=== PATIENT | female | born 1960 | race Caucasian/White ===

== ENCOUNTER → 2025-08-24 | Outpatient (CLI) | payer OTHER ==
--- NOTE | 2025-08-24 15:11 | HMCIMG ---
EXAM: MR Cervical Spine Without IV contrast. CLINICAL HISTORY: RADICULOPATHY CERVICAL REGION TECHNIQUE: Magnetic resonance images of the cervical spine without intravenous contrast in multiple planes. Series acquired: 2 - LOCALIZER - TR: 700.0 - TE: 79.6 - ET: 1.0 - Thk: 5.0 300 - SC:SAG T2 FRFSE - TR: 3485.0 - TE: 119.2 - ET: 27.0 - Thk: 3.0 400 - SC:SAG T1 FSE - TR: 454.0 - TE: 16.2 - ET: 4.0 - Thk: 3.0 500 - SC:SAG STIR - TR: 4349.0 - TE: 39.7 - ET: 13.0 - Thk: 3.0 600 - SC:AX T2 FRFSE - TR: 5410.0 - TE: 121.2 - ET: 14.0 - Thk: 3.0 CONTRAST: None. COMPARISON: None provided. FINDINGS: VERTEBRAE: No compressions are seen. No masses are seen. There is no infiltrative bone marrow disease. ALIGNMENT: Bony alignment is anatomic. SPINAL CORD/BRAIN: No abnormality is seen in the cord. No abnormality is seen in the visualized portions of the brain. FINDINGS BY LEVEL: C2-C3: The disc space height is maintained. There is adequate disc hydration. There is no bulge or herniation. No neural foraminal stenosis is seen. No spinal canal stenosis is seen. Facets are normal. C3-C4: The disc is desiccated with a 3 mm disc osteophyte complex. Bilateral uncinate hypertrophy causes moderate bilateral neuroforaminal stenosis. C4-C5: Disc and osteophyte complex 3 mm with bilateral uncinate hypertrophy is associated with severe bilateral neural foraminal stenosis and mild cord compression C5-C6: Disc and osteophyte complex 3 mm combined with bilateral facet hypertrophy with severe neuroforaminal stenosis. Bilateral facet hypertrophy C6-C7: Disc and osteophyte complex 3 mm combined with bilateral facet hypertrophy with severe neuroforaminal stenosis. Bilateral facet hypertrophy C7-T1: The disc space height is maintained. There is adequate disc hydration. There is no bulge or herniation. No neural foraminal stenosis is seen. No spinal canal stenosis is seen. Facets are normal. PARASPINAL SOFT TISSUES: No soft tissue abnormality is noted. IMPRESSION: Multilevel disc protrusions combined with facet hypertrophic changes, resulting in multilevel neural foraminal stenosis. /[facility]
== END | disposition home or self-care (01) ==
LOC: RAH 11:04
PROVIDERS: ATTEND Family Medicine
DX: M47.22 Other spondylosis with radiculopathy, cervical region (principal); M48.02 Spinal stenosis, cervical region; M50.10 Cervical disc disorder with radiculopathy, unspecified cervical region; M25.78 Osteophyte, vertebrae; M50.121 Cervical disc disorder at C4-C5 level with radiculopathy
CPT/HCPCS: 72141